=== PATIENT | female | born 1940 | race Two or more races ===

== ENCOUNTER 2020-05-08 12:07 | Emergency (ER) | payer MEDICARE ==
[~2020-05-08] VITALS: Ht 157.5 cm; Wt 45.0 kg
[2020-05-08] MEDS ORDERED: MORPHINE SULFATE 10 MG/ML CPJ IM ONE (12:45)
[2020-05-08] MEDS ORDERED: ONDANSETRON HCL 4MG/2ML INJ IV STA (13:24)
[2020-05-08] MEDS ORDERED: PROPOFOL 200MG/20ML VIAL IV ONE (13:30)
[2020-05-08] MEDS ORDERED: SODIUM CHLORIDE 0.9% 1,000 ML IV ONE (13:30)
[2020-05-08] MEDS ORDERED: KETAMINE HCL 50 MG/ML 10ML IV ONE (13:30)
[2020-05-08] MEDS ORDERED: HYDROCODONE/ACETAMINOPHEN 5/325MG TABLET PO ONE ×2 (16:00→17:00)
[2020-05-08 18:00] VITALS: BP 148/67
== END 2020-05-08 18:00 | disposition home or self-care (01) ==
LOC: EDBD 12:07 → ER 12:07
DX: S52.501A Unspecified fracture of the lower end of right radius, initial encounter for closed fracture (principal); S52.201A Unspecified fracture of shaft of right ulna, initial encounter for closed fracture; I49.9 Cardiac arrhythmia, unspecified; W01.0XXA Fall on same level from slipping, tripping and stumbling without subsequent striking against object, initial encounter; Y93.89 Activity, other specified; Y92.89 Other specified places as the place of occurrence of the external cause; Y99.8 Other external cause status
CPT/HCPCS: 25605; 73110; 93005; 96361; 96372; 96374; 96375; 99152; 99285; J2270; J2405; J2704; J3490; J7030

== ENCOUNTER 2020-05-15 18:16 | Emergency (ER) | payer MEDICARE ==
[~2020-05-15] VITALS: Ht 157.5 cm; Wt 44.0 kg
[2020-05-15] MEDS ORDERED: ACETAMINOPHEN 325MG TABLET PO ONE (19:30)
[2020-05-15 22:53] VITALS: BP 134/60
== END 2020-05-15 22:53 | disposition home or self-care (01) ==
LOC: ER 18:16
DX: S52.531A Colles' fracture of right radius, initial encounter for closed fracture (principal); X58.XXXA Exposure to other specified factors, initial encounter; Y93.89 Activity, other specified; Y92.89 Other specified places as the place of occurrence of the external cause; Y99.8 Other external cause status
CPT/HCPCS: 29125; 73100; 99283